=== PATIENT | male | born 1940 | race Caucasian/White ===

== ENCOUNTER 2016-12-12 11:37 | Outpatient (CLI) | payer MEDICARE, OTHER ==
[2016-12-12 12:30] LABS: eGFR (African) > 60; eGFR (Non-African) > 60
== END 2016-12-12 11:40 ==
LOC: LAB 11:37
PROVIDERS: ATTEND Family Medicine
DX: E11.9 Type 2 diabetes mellitus without complications (principal)
CPT/HCPCS: 36415; 80053; 83036

== ENCOUNTER 2017-04-17 11:18 | Outpatient (CLI) | payer MEDICARE, OTHER ==
[2017-04-17 12:05] LABS: eGFR (African) > 60; eGFR (Non-African) > 60
== END 2017-04-17 11:20 ==
LOC: LAB 11:18
PROVIDERS: ATTEND Family Medicine
DX: E11.9 Type 2 diabetes mellitus without complications (principal)
CPT/HCPCS: 36415; 80053; 80061; 82043; 83036

== ENCOUNTER 2017-07-22 17:05 | Outpatient (CLI) | payer MEDICARE, OTHER | END 2017-07-22 17:06 | LOC: LABRHC 17:05 | PROVIDERS: ATTEND Family Medicine | DX: E11.9 Type 2 diabetes mellitus without complications (principal) | CPT/HCPCS: 83036 ==

== ENCOUNTER 2019-09-03 10:00 | Outpatient (CLI) | payer MEDICARE, OTHER ==
[2019-09-03 12:35] LABS: A1C 6.6 % (<5.7); HDL 39 mg/dL (>40); eGFR (Non-African) > 60
== END 2019-09-03 10:05 ==
LOC: LAB 10:00
PROVIDERS: ATTEND Family Medicine
DX: E11.9 Type 2 diabetes mellitus without complications (principal); I10 Essential (primary) hypertension
CPT/HCPCS: 36415; 80053; 80061; 82043; 83036